=== PATIENT | female | born 1955 | race Caucasian/White ===

== ENCOUNTER → 2024-07-21 07:22 | Outpatient (REF) | payer MEDICARE, OTHER, SELFPAY ==
[2024-07-21 09:23] LABS: % Basophils 0.7 % (0-2); % Eosinophils 6.7 % (0-6); % Immature Granulocytes 0.2 % (0-0.5); % Lymphocytes 35.7 % (20.5-51.1); % Monocytes 8.7 % (1.7-9.3); Absolute Eosinophils 0.4 10^3/uL (0-0.7); Absolute Lymphocytes 2.1 10^3/uL (1.2-3.4); Absolute Monocytes 0.5 10^3/uL (0.1-0.6); Absolute Neutrophils 2.8 10^3/uL (1.4-6.5); Hematocrit 46.3 % (37.0-47.0); Hemoglobin 15.5 g/dL (12.0-16.0); Mean Corp Hgb Conc. 33.5 g/dL (33.0-37.0); Mean Corpuscular Hgb 31.3 pg (27.0-31.0); Mean Corpuscular Volume 93.3 fL (81.0-99.0); Mean Platelet Volume 9.5 fL (7.4-10.4); Nucleated Red Blood Cells % 0 %; Platelet Count 270 10^3/uL (130-400); Red Blood Cell Count 4.96 10^6/uL (4.20-5.40); Red Cell Dist. Width 12.2 % (11.5-14.5); White Blood Cell Count 5.9 10^3/uL (4.8-10.8)
[2024-07-21 09:47] LABS: ALT (SGPT) 60 U/L (0-35); AST (SGOT) 57 U/L (14-36); Albumin 4.2 g/dl (3.5-5.0); Alkaline Phosphatase 97 U/L (38-126); Blood Urea Nitrogen 22 mg/dl (7-17); Carbon Dioxide 32 mmol/L (22-30); Chloride 99 mmol/L (98-107); Glucose 101 mg/dl (70-99); HDL Cholesterol 84 mg/dl; Iron 136 ug/dl (37-170); LDL Cholesterol, Calculated 93 mg/dl; Potassium 5.5 mmol/L (3.5-5.1); Sodium 139 mmol/L (135-145); Total Bilirubin 0.5 mg/dl (0.2-1.3); Total Cholesterol 193 mg/dl (50-199); Total Protein 6.2 g/dl (6.3-8.2); Triglyceride 82 mg/dl (10-149); Very Low Density Lipoprotein 16 mg/dl (0-30); eGFR > 60.00
[2024-07-21 09:56] LABS: Percent Saturation 33 % (20-50); Total Iron Binding Capacity 412 ug/dl (265-497)
[2024-07-21 14:08] LABS: Vitamin D, 25-OH*** 35.4 ng/mL (30-80)
[2024-07-21 14:25] LABS: TSH Reflex To Free T4 0.07 uIU/ml (0.47-4.68)
[2024-07-21 14:50] LABS: Free T4 1.05 ng/dl (0.78-2.19)
[2024-07-21 14:51] LABS: Vitamin B12 449 pg/ml (239-931)
[2024-07-21 21:33] LABS: Folate > 20.0 ng/ml (2.76-20)
== END ==
LOC: WDC 07:22
PROVIDERS: ATTENDING PHYSICIAN Family Medicine
DX: Z12.31 Encounter for screening mammogram for malignant neoplasm of breast (principal); G25.81 Restless legs syndrome; Z98.84 Bariatric surgery status; R53.83 Other fatigue; D64.9 Anemia, unspecified; F41.9 Anxiety disorder, unspecified; E78.2 Mixed hyperlipidemia; Z79.899 Other long term (current) drug therapy
CPT/HCPCS: 36415; 77063; 77067; 80053; 80061; 82306; 82607; 82746; 83540; 83550; 84439; 84443; 85025

== ENCOUNTER → 2024-08-12 07:39 | Outpatient (REF) | payer MEDICARE, OTHER, SELFPAY ==
[2024-08-12 11:01] LABS: Ferritin 14.6 ng/ml (11.1-264.0)
[2024-08-12 11:24] LABS: ALT (SGPT) 57 U/L (0-35); AST (SGOT) 54 U/L (14-36); Albumin 3.8 g/dl (3.5-5.0); Alkaline Phosphatase 78 U/L (38-126); Blood Urea Nitrogen 19 mg/dl (7-17); Calcium 9.3 mg/dl (8.4-10.2); Carbon Dioxide 28 mmol/L (22-30); Chloride 105 mmol/L (98-107); Glucose 102 mg/dl (70-99); Potassium 4.3 mmol/L (3.5-5.1); Sodium 141 mmol/L (135-145); Total Bilirubin 0.6 mg/dl (0.2-1.3); Total Protein 5.8 g/dl (6.3-8.2); eGFR > 60.00
[2024-08-13 14:18] LABS: tTG IgA Antibody 1.6 EU/ml (0-19); tTG IgG Antibody 2.5 EU/ml (0-19)
[2024-08-13 23:42] LABS: IgA 70 mg/dl (70-400); IgG 322 mg/dl (700-1600); IgM 42 mg/dl (40-230)
[2024-08-14 00:42] LABS: Endomysial IgA Antibody Titer <1:10 (<1:10)
[2024-08-14 02:04] LABS: ANA, IgG Reflex to HEp-2 None Detected (None Detected)
[2024-08-14 02:16] LABS: Mitochondrial M2 Ab, IgG 1.7 Units (0.0-24.9)
== END ==
LOC: HWRAD 07:39
PROVIDERS: ATTENDING PHYSICIAN Family Medicine
DX: R74.8 Abnormal levels of other serum enzymes (principal); E87.5 Hyperkalemia
CPT/HCPCS: 36415; 76700; 80053; 82728; 82784; 83516; 86038; 86231; 86381